=== PATIENT | female | born 1995 | race Two or more races ===

== ENCOUNTER 2017-12-03 19:58 | Emergency (ER) | payer MEDICAID ==
[2017-12-03] MEDS: SMZ/TMP 800/160MG TABLET. PO (21:31)
[2017-12-03] MEDS: HYDROcodone/APAP 5/325MG 1 TAB TABLET PO (21:31)
[2017-12-03] MEDS: DIPHTH,PERTUSS(ACELL),TET TOX 0.5 ML DISP.SYRIN. VAX IM (21:32)
== END 2017-12-03 21:52 | disposition home or self-care (01) ==
LOC: ER 19:58
DX: N89.8 Other specified noninflammatory disorders of vagina (principal); R10.2 Pelvic and perineal pain; Z98.890 Other specified postprocedural states; Z88.0 Allergy status to penicillin
CPT/HCPCS: 90471; 90715; 99283-25